=== PATIENT | male | born 1940 | race Caucasian/White ===

== ENCOUNTER → 2017-02-17 | Outpatient (CLI) | payer MEDICARE, OTHER | LOC: MW.CHNEURO 08:00 | PROVIDERS: ATTEND Psychiatry & Neurology Neuromuscular Medicine | DX: G62.9 Polyneuropathy, unspecified (principal); G20 Parkinson's disease | CPT/HCPCS: 99214 ==

== ENCOUNTER → 2017-02-24 | Outpatient (CLI) | payer MEDICARE, OTHER | END | disposition home or self-care (01) | LOC: MW.CHUR 11:24 | PROVIDERS: ATTEND Urology | DX: R39.15 Urgency of urination (principal) | CPT/HCPCS: 52000; 81001 ==

== ENCOUNTER 2017-12-04 14:21 | Emergency (ER) | payer MEDICARE, OTHER ==
[2017-12-04] MEDS ORDERED: Acetaminophen 325 MG Tab PO ONE (15:41)
--- NOTE | 2017-12-04 15:44 | EDM.PDOC ---
ED HPI GENERAL MEDICAL PROBLEM - General Chief Complaint: Upper Extremity Injury/Pain Stated Complaint: FALL INJURY Time Seen by Provider: 12/04/17 15:33 - History of Present Illness INITIAL COMMENTS - FREE TEXT/NARRATIVE: HISTORY AND PHYSICAL: History of present illness: The patient is a 77-year-old male with a history of Parkinson's and some gait ataxia due to the Parkinson's in past who fell this morning approximately 9:45 AM striking his right shoulder. Patient did not pass out or blackout initially and was helped up and had no complaints of any pain initially. As the morning progressed he started complaining of right shoulder and proximal humerus pain and he is here for evaluation of said pain. He did not complain of head neck or back pain and has no other other extremity complaints. Patient denies any chest pain shortness of breath abdominal pain nausea or vomiting and for my evaluation also has no stated complaints except anterior shoulder pain. Family bedside says that he has had some gait imbalance is due to the Parkinson's and has had falls before because of that. Patient denies any distal elbow forearm hand or wrist pain. The patient is able to specifically recall the events of the fall today. He says that he was in the bathroom and was trying to back out with his walker when he turned and lost his balance and fell and the caregiver at [place] was present for this. It was a witnessed fall. The patient did not hit his head or pass out. The family at bedside says that when he does try to move backwards he does lose his balance and this would not be unusual for him. Review of systems: As per history of present illness and below otherwise all systems reviewed and negative. Past medical history: As per history of present illness and as reviewed below otherwise noncontributory. Surgical history: As per history of present illness and as reviewed below otherwise noncontributory. Social history: No reported history of drug or alcohol abuse. Family history: As per history of present illness and as reviewed below otherwise noncontributory. Physical exam: Gen.: Well-developed well-nourished man who is nontoxic and cooperative on evaluation. Vital signs are noted by me HEENT: Atraumatic, normocephalic, there are no midline step-offs defects or tenderness of the cervical spine negative for conjunctival pallor or scleral icterus, mucous membranes moist, throat clear, neck supple, nontender, trachea midline. Lungs: Clear to auscultation, breath sounds equal bilaterally, chest nontender. Heart: S1S2, regular rate and rhythm no overt murmurs Abdomen: Soft, nondistended, nontender. NABS Pelvis: Stable nontender. Genitourinary: Deferred. Rectal: Deferred. Extremities: Atraumatic with full range of motion of all extremities with the exception of the anterior aspect of the shoulder where there is visible ill- defined pink erythema and some soft tissue swelling with a very superficial skin abrasion but no palpable bony deformities. The clavicle is intact and nontender and there is some mild tenderness at the proximal humerus on the right. Distally on the right upper extremity there is no elbow forearm wrist or hand discomfort defects or deformities and the patient has full range of motion and pulses are intact. The legs are, negative for cords or calf pain. Neurovascular unremarkable. Neuro: Awake, alert, oriented Motor and sensory unremarkable throughout. Exam nonfocal. Diagnostics: X-ray right shoulder and humerus I Have discussed with the patient and family at bedside further workup including blood work and EKG urinalysis and they feel comfortable with just evaluating the injury of the shoulder at this time. Therapeutics: Ice pack Tylenol Impression: Right shoulder/humerus contusion Definitive disposition and diagnosis as appropriate pending reevaluation and review of above. Right Shoulder Pain Score (Numeric/FACES): 9 - Related Data Allergies Allergy/AdvReac Type Severity Reaction Status Date / Time No Known Allergies Allergy Verified 12/04/17 15:38 Home Meds: Home Meds Aspirin [Althea Chewable Aspirin] 81 mg PO DAILY 04/24/14 [History] Calcium Citrate/Vitamin D3 [Citracal-Vit D 200 mg-250 Tab] 1 each PO DAILY 04/24 [History] Carbidopa/Levodopa [Carbidopa-Levodopa 25-100] 1 tab PO QID 04/24/14 [History] Pramipexole Di-HCl [Mirapex] 0.25 mg PO DAILY 04/24/14 [History] QUEtiapine [SEROquel] 12.5 mg PO BEDTIME 08/22/14 [History] Acetaminophen [Tylenol Extra Strength] 500 mg PO Q4H PRN 12/04/17 [History] Alum Hydrox/Mag Hydrox/Simeth [Mag-Al Plus] 30 ml PO DAILY PRN 12/04/17 [History ] Bisacodyl [Dulcolax] 10 mg RC Q24H PRN 12/04/17 [History] Carbamide Peroxide [Debrox] 3 drop EARBOTH BEDTIME PRN 12/04/17 [History] Carbidopa/Levodopa [Carbidopa-Levo ER 50-200] 1 tab PO BEDTIME 12/04/17 [History ] Docusate Sodium 100 mg PO BID 12/04/17 [History] Entacapone 200 mg PO 5XDAY 12/04/17 [History] Loperamide HCl [Imodium A-D] 2 - 4 mg PO TID PRN MDD 3 12/04/17 [History] Magnesium Hydroxide [Milk of Magnesia] 30 ml PO DAILY PRN 12/04/17 [History] Multivit-Min/FA/Lycopene/Lut [Certavite Sr with Lutein Tab] 1 each PO DAILY 11/20 [History] Oseltamivir [Tamiflu] 75 mg PO BID 12/04/17 [History] Oxybutynin 5 mg PO BID 12/04/17 [History] Polyethylene Glycol 3350 [MiraLAX] 17 gm PO BID PRN 12/04/17 [History] Ranitidine HCl [Ranitidine] 150 mg PO BID PRN 12/04/17 [History] Past Medical History - Past Health History Medical/Surgical History: Denies Medical/Surgical History Social & Family History - Tobacco Use Smoking Status *Q: Never Smoker Years of Tobacco use: 5 Used Tobacco, but Quit: Yes Month Tobacco Last Used: 50 years Second Hand Smoke Exposure: No - Alcohol Use Days Per Week of Alcohol Use: 0 - Recreational Drug Use Recreational Drug Use: No Review of Systems - Review of Systems Review Of Systems: ROS reveals no pertinent complaints other than HPI. ED EXAM, GENERAL - Physical Exam Exam: See Below (See dictation) Course - Vital Signs Last Recorded V/S: Last Vital Signs Temp 36.9 C 12/04/17 15:40 Pulse 81 12/04/17 15:40 Resp 20 12/04/17 15:40 BP 121/75 12/04/17 15:40 Pulse Ox 94 L 12/04/17 15:40 - Orders/Labs/Meds Orders: Active Orders 24 hr Category Date Time Status Humerus Rt [CR] Stat Exams 12/04/17 15:41 Taken Shoulder Comp Rt [CR] Stat Exams 12/04/17 15:41 Taken Meds: Medications Discontinued Medications Generic Name Dose Route Start Last Admin Trade Name Kel PRN Reason Stop Dose Admin Acetaminophen 650 mg 12/04/17 15:41 12/04/17 15:52 Tylenol PO 12/04/17 15:42 650 mg NOW ONE Administration Departure - Departure Time of Disposition: 17:19 Disposition: DC/Tfer to SNF 03 Condition: Good Clinical Impression: Shoulder contusion Qualifiers: Encounter type: initial encounter Laterality: right Qualified Code(s): S40.011A - Contusion of right shoulder, initial encounter - Discharge Information Referrals: PCP,None [Primary Care Provider] - Forms: ED Department Discharge Additional Instructions: The following information is given to patients seen in the emergency department who are being discharged to home. This information is to outline your options for follow-up care. We provide all patients seen in our emergency department with a follow-up referral. The need for follow-up, as well as the timing and circumstances, are variable depending upon the specifics of your emergency department visit. If you don't have a primary care physician on staff, we will provide you with a referral. We always advise you to contact your personal physician following an emergency department visit to inform them of the circumstance of the visit and for follow-up with them and/or the need for any referrals to a consulting specialist. The emergency department will also refer you to a specialist when appropriate. This referral assures that you have the opportunity for followup care with a specialist. All of these measure are taken in an effort to provide you with optimal care, which includes your followup. Under all circumstances we always encourage you to contact your private physician who remains a resource for coordinating your care. When calling for followup care, please make the office aware that this follow-up is from your recent emergency room visit. If for any reason you are refused follow-up, please contact the [facility] emergency department at and ask to speak to the emergency department charge nurse. [address] [place], [place] [id number] [facility] Specialty [facility]--Orthopedic clinic Professional Building [address] [place] [id number] Use ice to area for pain and [id number] medications as needed. Please call and follow-up with your provider at [facility] and the orthopedics clinic as needed for persistent pain. Return to ER as needed and as discussed - My Orders Last 24 Hours: My Active Orders 12/04/17 15:41 Humerus Rt [CR] Stat Shoulder Comp Rt [CR] Stat - Assessment/Plan Last 24 Hours: My Active Orders 12/04/17 15:41 Humerus Rt [CR] Stat Shoulder Comp Rt [CR] Stat
[2017-12-04 19:47] VITALS: BP 128/76
--- NOTE | 2017-12-05 15:38 | CR ---
EXAM DATE: 12/04/17 PATIENT'S AGE: 77 Patient: RANCHO CARBALLO Facility: [place], [place] Site . Site : 1940 Study: XRay Extremity Right Humerus [id number]/1/[id number] 4:51:49 PM Ordering Physician: Naheed Zuluaga Final Report: INDICATION: Pain/fall TECHNIQUE: Right humerus 2 views. COMPARISON: None. FINDINGS: Bones: Alignment is normal. No fractures or bone lesions. Joint spaces: Unremarkable. Soft tissues: Unremarkable. IMPRESSION: Unremarkable right humerus. Dictated by: Ruiz Gunn MD @ 12/04/2017 17:15:53 (Electronic Signature) Report Signed by Proxy. SULLY
--- NOTE | 2017-12-05 15:39 | CR ---
EXAM DATE: 12/04/17 PATIENT'S AGE: 77 Patient: RANCHO CARBALLO Facility: [place], [place] Site . Site : 1940 Study: XRay Shoulder Right [id number]/1/2018 4:53:23 PM Ordering Physician: Naheed Zuluaga Final Report: INDICATION: pain/fall TECHNIQUE: Right shoulder 2 views COMPARISON: None. FINDINGS: Bones: Alignment is normal. No fractures or bone lesions. Joint spaces: Unremarkable. Soft tissues: Unremarkable. IMPRESSION: Unremarkable right shoulder. Dictated by: Ruiz Gunn MD @ 12/04/2017 17:16:29 (Electronic Signature) Report Signed by Proxy. SULLY
== END 2017-12-04 17:41 ==
LOC: MW.ED 14:21
DX: S40.011A Contusion of right shoulder, initial encounter (principal); G20 Parkinson's disease; Z79.82 Long term (current) use of aspirin; Z79.899 Other long term (current) drug therapy; Z87.891 Personal history of nicotine dependence; W01.198A Fall on same level from slipping, tripping and stumbling with subsequent striking against other object, initial encounter
CPT/HCPCS: 73030; 73060; 99283; A9270; 99284

== ENCOUNTER 2018-01-07 21:03 | Emergency (ER) | payer MEDICARE, OTHER ==
[2018-01-07 21:21] VITALS: BP 135/90
[2018-01-07] MEDS ORDERED: Diphtheria/Tetanus Toxoids,Adult (Td) 0.5 ML Syringe IM ONE (21:28)
[2018-01-07] MEDS ORDERED: Lidocaine 1% with EPINEPHrine 1:100,000 10 ML MDV INJECT ONE (21:29)
[2018-01-07] MEDS ORDERED: Lidocaine 1% with EPINEPHrine 1:100,000 20 ML MDV ONE (21:34)
[2018-01-07] MEDS ORDERED: Lidocaine 1% with EPINEPHrine 1:100,000 20 ML MDV INJECT ONE (21:35)
[2018-01-07] MEDS ORDERED: Bacitracin Oint 1 GM U/D Packet TOP ONE (21:36)
--- NOTE | 2018-01-07 21:36 | EDM.PDOC ---
ED HPI GENERAL MEDICAL PROBLEM - General Chief Complaint: Laceration Stated Complaint: FALL Time Seen by Provider: 01/07/18 21:22 - History of Present Illness INITIAL COMMENTS - FREE TEXT/NARRATIVE: HISTORY AND PHYSICAL: History of present illness: The patient is a 77-year-old male with a history of Parkinson's with gait ataxia and frequent falls who presents via EMS from [facility] where he sustained a minor fall when he was trying to go backwards with his walker. I saw this patient on December 04 with a similar presentation where he was with his walker and tried to go backwards and had a fall injuring his shoulder. He tells me that every time he tries to go backwards he has a fall but sometimes he can avoid going backwards. He says that this is exactly what happened this evening. He did not pass out or blackout and has no neck or back pain no extremity complaints no hip pain no pelvis pain and has had no nausea or vomiting. Earlier today he was in his usual state of good health and had no vomiting diarrhea urinary issues abdominal pain upper respiratory symptoms chest pain or dizziness. Patient denies that he had any specific symptoms of dizziness or lightheadedness before the fall. He has no extremity issues such as weakness numbness or tingling and no pain. He is unsure of his last tetanus. When I saw this patient in December the family member at bedside only wanted focused care on his shoulder and did not want any metabolic testing. The 2 family members at bedside this evening do want some metabolic testing. Review of systems: As per history of present illness and below otherwise all systems reviewed and negative. Past medical history: As per history of present illness and as reviewed below otherwise noncontributory. Surgical history: As per history of present illness and as reviewed below otherwise noncontributory. Social history: No reported history of drug or alcohol abuse. Family history: As per history of present illness and as reviewed below otherwise noncontributory. Physical exam: Gen.: Well-developed well-nourished man who is nontoxic and moves easily in the bed and is interactive with me. Vital signs are noted by me HEENT: normocephalic, there are no palpable skull deformities but there is a vertical clean for centimeter laceration to the subcutaneous tissue on the upper occipital area without any soft tissue swelling, pupils reactive, negative for conjunctival pallor or scleral icterus, mucous membranes moist, throat clear, neck supple, nontender, trachea midline. There are no midline step -offs tenderness defects of the cervical spine Lungs: Clear to auscultation, breath sounds equal bilaterally, chest nontender. Heart: S1S2, regular, negative for clicks, rubs, or JVD. Abdomen: Soft, nondistended, nontender. Negative for masses or hepatosplenomegaly. Negative for costovertebral tenderness. Pelvis: Stable nontender. Lateral hip tenderness Genitourinary: Deferred. Rectal: Deferred. Extremities: Atraumatic, negative for cords or calf pain. Neurovascular unremarkable. Full range of motion of all extremities without defects or deficits and there is no tenderness with this exam. Neuro: Awake, alert, oriented. Cranial nerves II through XII unremarkable. Motor and sensory unremarkable throughout. Exam nonfocal. Back: There are no midline step-offs tenderness defects of the thoracic or lumbar spine and no posterior rib or posterior pelvis tenderness Diagnostics: CT scan of the head EKG CBC CMP UA Therapeutics: Wound care laceration repair Procedure note: After the wound was cleansed by nursing 1% lidocaine with epinephrine was infused and the wound was prepped and draped in sterile fashion. The wound was explored and no foreign bodies were appreciated. The skin edges were reapproximated using a total number of # 6 nayely. Bacitracin was applied and the patient tolerated the procedure well with no complications. Impression: Fall with history of Parkinson's/ataxia and frequent falls, scalp laceration Definitive disposition and diagnosis as appropriate pending reevaluation and review of above. occipital area Pain Score (Numeric/FACES): 2 - Related Data Allergies Allergy/AdvReac Type Severity Reaction Status Date / Time No Known Allergies Allergy Verified 01/07/18 21:16 Home Meds: Home Meds Aspirin [Althea Chewable Aspirin] 81 mg PO DAILY 04/24/14 [History] Calcium Citrate/Vitamin D3 [Citracal-Vit D 200 mg-250 Tab] 1 each PO DAILY 04/24 [History] Carbidopa/Levodopa [Carbidopa-Levodopa 25-100] 1 tab PO QID 04/24/14 [History] Pramipexole Di-HCl [Mirapex] 0.25 mg PO DAILY 04/24/14 [History] QUEtiapine [SEROquel] 12.5 mg PO BEDTIME 08/22/14 [History] Acetaminophen [Tylenol Extra Strength] 500 mg PO Q4H PRN 12/04/17 [History] Alum Hydrox/Mag Hydrox/Simeth [Mag-Al Plus] 30 ml PO DAILY PRN 12/04/17 [History ] Bisacodyl [Dulcolax] 10 mg RC Q24H PRN 12/04/17 [History] Carbamide Peroxide [Debrox] 3 drop EARBOTH BEDTIME PRN 12/04/17 [History] Carbidopa/Levodopa [Carbidopa-Levo ER 50-200] 1 tab PO BEDTIME 12/04/17 [History ] Docusate Sodium 100 mg PO BID 12/04/17 [History] Entacapone 200 mg PO 5XDAY 12/04/17 [History] Loperamide HCl [Imodium A-D] 2 - 4 mg PO TID PRN MDD 3 12/04/17 [History] Magnesium Hydroxide [Milk of Magnesia] 30 ml PO DAILY PRN 12/04/17 [History] Multivit-Min/FA/Lycopene/Lut [Certavite Sr with Lutein Tab] 1 each PO DAILY 11/20 [History] Oseltamivir [Tamiflu] 75 mg PO BID 12/04/17 [History] Oxybutynin 5 mg PO BID 12/04/17 [History] Polyethylene Glycol 3350 [MiraLAX] 17 gm PO BID PRN 12/04/17 [History] Ranitidine HCl [Ranitidine] 150 mg PO BID PRN 12/04/17 [History] Past Medical History - Past Health History Medical/Surgical History: Denies Medical/Surgical History HEENT History: Reports: Hard of Hearing, Impaired Vision Cardiovascular History: Reports: Afib, Hypertension Respiratory History: Reports: None Gastrointestinal History: Reports: Other (See Below) Other Gastrointestinal History: Constipation Genitourinary History: Reports: Other (See Below) Other Genitourinary History: Urinary Urgency Musculoskeletal History: Reports: Gout, Other (See Below) Other Musculoskeletal History: muscle weakness. lack of coordination Neurological History: Reports: Parkinson's Psychiatric History: Reports: Depression Endocrine/Metabolic History: Reports: None Hematologic History: Reports: Other (See Below) Other Hematologic History: Thrombocytopenia Immunologic History: Reports: None Oncologic (Cancer) History: Reports: None Dermatologic History: Reports: None Social & Family History - Family History Family Medical History: Noncontributory - Tobacco Use Smoking Status *Q: Former Smoker Years of Tobacco use: 5 Used Tobacco, but Quit: No Month Tobacco Last Used: 50 years Second Hand Smoke Exposure: No - Caffeine Use Caffeine Use: Reports: None - Alcohol Use Days Per Week of Alcohol Use: 0 - Recreational Drug Use Recreational Drug Use: No ED ROS GENERAL - Review of Systems Review Of Systems: ROS reveals no pertinent complaints other than HPI. ED EXAM, SKIN/RASH Exam: See Below (See dictation) Course - Vital Signs Last Recorded V/S: Last Vital Signs Temp 36.8 C 01/07/18 21:10 Pulse 72 01/07/18 21:10 Resp 18 01/07/18 21:10 BP 135/90 01/07/18 21:10 Pulse Ox 94 L 01/07/18 21:10 - Orders/Labs/Meds Orders: Active Orders 24 hr Category Date Time Status Communication Order [RC] STAT Care 01/07/18 21:28 Active EKG Documentation Completion [RC] STAT Care 01/07/18 21:27 Active Vaccines to be Administered [RC] PER UNIT ROUTINE Care 01/07/18 21:28 Active Head wo Cont [CT] Stat Exams 01/07/18 21:28 Taken Labs: Laboratory Tests 01/07/18 01/07/18 01/07/18 Range/Units 21:38 21:38 22:20 WBC 7.67 (4.0-11.0) K/uL RBC 4.65 (4.50-5.90) M/uL Hgb 14.2 (13.0-17.0) g/dL Hct 42.6 (38.0-50.0) % MCV 91.6 (80.0-98.0) fL MCH 30.5 (27.0-32.0) pg MCHC 33.3 (31.0-37.0) g/dL RDW Std Deviation 49.7 (28.0-62.0) fl RDW Coeff of [place] 15 (11.0-15.0) % Plt Count 145 L (150-400) K/uL MPV 11.40 (7.40-12.00) fL Neut % (Auto) 73.6 (48.0-80.0) % Lymph % (Auto) 13.6 L (16.0-40.0) % [place] % (Auto) 9.9 (0.0-15.0) % Eos % (Auto) 2.5 (0.0-7.0) % Baso % (Auto) 0.4 (0.0-1.5) % Neut # (Auto) 5.7 (1.4-5.7) K/uL Lymph # (Auto) 1.0 (0.6-2.4) K/uL [place] # (Auto) 0.8 (0.0-0.8) K/uL Eos # (Auto) 0.2 (0.0-0.7) K/uL Baso # (Auto) 0.0 (0.0-0.1) K/uL Nucleated RBC % 0.0 /100WBC Nucleated RBCs # 0 K/uL Sodium 140 (136-148) mmol/L Potassium 4.6 (3.5-5.1) mmol/L Chloride 106 (98-107) mmol/L Carbon Dioxide 29.1 (21.0-32.0) mmol/L BUN 22 H (7.0-18.0) mg/dL Creatinine 1.0 (0.8-1.3) mg/dL Est Cr Clr Drug Dosing 57.84 mL/min Estimated GFR (MDRD) > 60.0 ml/min Glucose 90 (74-106) mg/dL Calcium 8.5 (8.5-10.1) mg/dL Total Bilirubin 0.6 (0.2-1.0) mg/dL AST 21 (15-37) IU/L ALT 17 (14-63) IU/L Alkaline Phosphatase 64 (46-116) U/L Total Protein 5.7 L (6.4-8.2) g/dL Albumin 3.0 L (3.4-5.0) g/dL Globulin 2.7 (2.0-3.5) g/dL Albumin/Globulin Ratio 1.1 L (1.3-2.8) Urine Color YELLOW Urine Appearance CLEAR Urine pH 6.0 (5.0-8.0) Ur Specific [place] <= 1.005 (1.001-1.035) Urine Protein NEGATIVE (NEGATIVE) mg/dL Urine Glucose (UA) NEGATIVE (NEGATIVE) mg/dL Urine Ketones NEGATIVE (NEGATIVE) mg/dL Urine Occult Blood NEGATIVE (NEGATIVE) Urine Nitrite NEGATIVE (NEGATIVE) Urine Bilirubin NEGATIVE (NEGATIVE) Urine Urobilinogen 0.2 (<2.0) EU/dL Ur Leukocyte Esterase NEGATIVE (NEGATIVE) Urine RBC 0-2 (0-2/HPF) Urine WBC 0-1 (0-5/HPF) Ur Epithelial Cells RARE (NONE-FEW) Urine Bacteria FEW (NEGATIVE) Meds: Medications Discontinued Medications Generic Name Dose Route Start Last Admin Trade Name Kel PRN Reason Stop Dose Admin Bacitracin 1 dose 01/07/18 21:36 01/07/18 23:05 Bacitracin Oint 1 Gm TOP 01/07/18 21:37 1 dose ONETIME ONE Administration Lidocaine/Epinephrine 10 ml 01/07/18 21:29 01/07/18 22:46 Xylocaine 1% With Epinephrine 1:100,000 INJECT 01/07/18 21:30 Not Given ONETIME ONE Lidocaine/Epinephrine 20 ml 01/07/18 21:35 01/07/18 23:06 Xylocaine 1% With Epinephrine 1:100,000 INJECT 01/07/18 21:36 20 ml ONETIME ONE Administration Lidocaine/Epinephrine Confirm 01/07/18 21:34 01/07/18 22:46 Xylocaine 1% With Epinephrine 1:100,000 Administered 01/07/18 21:35 Not Given Dose 20 ml .ROUTE .STK-MED ONE Tetanus/Diphtheria Toxoids 0.5 ml 01/07/18 21:28 01/07/18 22:44 Tenivac IM 01/07/18 21:29 0.5 ml .ONCE ONE Administration Departure - Departure Time of Disposition: 23:20 Disposition: DC/Tfer to SNF 03 Condition: Good Clinical Impression: Falls frequently Scalp laceration Qualifiers: Encounter type: initial encounter Qualified Code(s): S01.01XA - Laceration without foreign body of scalp, initial encounter Closed head injury Qualifiers: Encounter type: initial encounter Qualified Code(s): S09.90XA - Unspecified injury of head, initial encounter - Discharge Information Referrals: PCP,None [Primary Care Provider] - Forms: ED Department Discharge Additional Instructions: The following information is given to patients seen in the emergency department who are being discharged to home. This information is to outline your options for follow-up care. We provide all patients seen in our emergency department with a follow-up referral. The need for follow-up, as well as the timing and circumstances, are variable depending upon the specifics of your emergency department visit. If you don't have a primary care physician on staff, we will provide you with a referral. We always advise you to contact your personal physician following an emergency department visit to inform them of the circumstance of the visit and for follow-up with them and/or the need for any referrals to a consulting specialist. The emergency department will also refer you to a specialist when appropriate. This referral assures that you have the opportunity for followup care with a specialist. All of these measure are taken in an effort to provide you with optimal care, which includes your followup. Under all circumstances we always encourage you to contact your private physician who remains a resource for coordinating your care. When calling for followup care, please make the office aware that this follow-up is from your recent emergency room visit. If for any reason you are refused follow-up, please contact the [facility] emergency department at and ask to speak to the emergency department charge nurse. [address] [place] [address] Keep area clean and dry for the next 24 hours and then cleanse with mild soap and water pat dry and apply bacitracin. [place] should be removed in 10 days. Please observe for any signs of head injury although the CT scan was within normal limits. Return to ER as needed and as discussed. - My Orders Last 24 Hours: My Active Orders 01/07/18 21:27 EKG Documentation Completion [RC] STAT 01/07/18 21:28 Communication Order [RC] STAT Vaccines to be Administered [RC] PER UNIT ROUTINE Head wo Cont [CT] Stat - Assessment/Plan Last 24 Hours: My Active Orders 01/07/18 21:27 EKG Documentation Completion [RC] STAT 01/07/18 21:28 Communication Order [RC] STAT Vaccines to be Administered [RC] PER UNIT ROUTINE Head wo Cont [CT] Stat
[2018-01-07 22:02] LABS: CHLORIDE,CL 106 mmol/L (98-107); SODIUM,NA 140 mmol/L (136-148)
--- NOTE | 2018-01-08 10:15 | CT ---
EXAM DATE: 01/07/18 PATIENT'S AGE: 77 Patient: RANCHO CARBALLO Facility: [place], [place] Site . Site : 1940 Study: CT Head [id number]/7/2018 10:05:46 PM Ordering Physician: Naheed Zuluaga Final Report: INDICATION: Fall, posterior laceration TECHNIQUE: CT head without contrast. COMPARISON: 04/23/2014 FINDINGS: CSF spaces: Within normal limits for age. Brain parenchyma: The irvin-white differentiation is normal. No sign of mass, hemorrhage, or midline shift. Skull base and calvarium: The visualized paranasal sinuses and mastoid air cells demonstrate no acute or significant findings. The visualized orbits are grossly unremarkable. No skull fractures. Hematoma and laceration high left parietal occipital scalp. IMPRESSION: Hematoma and laceration and left parieto-occipital scalp. No associated fractures or evidence of acute intracranial trauma. Dictated by Ruiz Gunn MD @ 01/07/2018 10:13:53 PM Dictated by: Ruiz Gunn MD @ 01/07/2018 22:14:00 (Electronic Signature) Report Signed by Proxy. [facility]William
== END 2018-01-07 22:50 ==
LOC: MW.ED 21:03
DX: S01.01XA Laceration without foreign body of scalp, initial encounter (principal); S09.90XA Unspecified injury of head, initial encounter; I10 Essential (primary) hypertension; Z79.82 Long term (current) use of aspirin; Z79.899 Other long term (current) drug therapy; Z87.891 Personal history of nicotine dependence; Z86.69 Personal history of other diseases of the nervous system and sense organs; W19.XXXA Unspecified fall, initial encounter
CPT/HCPCS: 36415; 70450; 70450-26; 80053; 81001; 85025; 90471; 90714; 93005; 99284-25

== ENCOUNTER 2018-06-19 17:46 | Emergency (ER) | payer MEDICARE, OTHER ==
[2018-06-19] MEDS ORDERED: Albuterol/Ipratropium 3.0-0.5 MG/3 ML Neb Soln NEB ONE (17:56)
[2018-06-19] MEDS ORDERED: methylPREDNISolone Sodium Succinate 125 MG/2 ML SDV IVPUSH ONE (17:56)
--- NOTE | 2018-06-19 17:57 | EDM.PDOC ---
<Chao Inman - Last Filed: 06/19/18 18:52> ED HPI GENERAL MEDICAL PROBLEM - General Chief Complaint: Respiratory Problem Stated Complaint: PT WEEZING Time Seen by Provider: 06/19/18 17:57 Source of Information: Reports: Patient - History of Present Illness INITIAL COMMENTS - FREE TEXT/NARRATIVE: HISTORY AND PHYSICAL: History of present illness: []Patient presents from the detention in no distress Apparently he had a fall at some point today, I do not know the details of this. A nurse head reported to have noted wheezing post fall, patient does not appear to be short of breath he denies shortness of breath but does complain of some right-sided rib pain and persistent cough for a week no fever nausea vomiting chills sweats no chest pain headache dizziness or palpitation no bowel or urine symptoms Review of systems: As per history of present illness and below otherwise all systems reviewed and negative. Past medical history: As per history of present illness and as reviewed below otherwise noncontributory. Surgical history: As per history of present illness and as reviewed below otherwise noncontributory. Social history: No reported history of drug or alcohol abuse. Family history: As per history of present illness and as reviewed below otherwise noncontributory. Physical exam: HEENT: Atraumatic, normocephalic, pupils reactive, negative for conjunctival pallor or scleral icterus, mucous membranes moist, throat clear, neck supple, nontender, trachea midline. Lungs: Clear to auscultation, breath sounds equal bilaterally, chest nontender. Heart: S1S2, regular, negative for clicks, rubs, or JVD. Abdomen: Soft, nondistended, nontender. Negative for masses or hepatosplenomegaly. Negative for costovertebral tenderness. Pelvis: Stable nontender. Genitourinary: Deferred. Rectal: Deferred. Extremities: Atraumatic, negative for cords or calf pain. Neurovascular unremarkable. Neuro: Awake, alert, oriented. Cranial nerves II through XII unremarkable. Cerebellum unremarkable. Motor and sensory unremarkable throughout. Exam nonfocal. Diagnostics: [CBC CMP troponin INR UA EKG Chest 1 view pelvis 1 view Right rib series Head CT-No contrast Therapeutics: DuoNeb Solu-Medrol ] Impression Fall Cough right-sided rib pain ] Chronic history baseline Definitive disposition and diagnosis as appropriate pending reevaluation and review of above. - Related Data Allergies Allergy/AdvReac Type Severity Reaction Status Date / Time No Known Allergies Allergy Verified 06/19/18 17:59 Home Meds: Home Meds Aspirin [Althea Chewable Aspirin] 81 mg PO DAILY 04/24/14 [History] Calcium Citrate/Vitamin D3 [Citracal-Vit D 200 mg-250 Tab] 1 each PO DAILY 04/24 [History] Carbidopa/Levodopa [Carbidopa-Levodopa 25-100] 1 tab PO QID 04/24/14 [History] Pramipexole Di-HCl [Mirapex] 0.25 mg PO DAILY 04/24/14 [History] QUEtiapine [SEROquel] 12.5 mg PO BEDTIME 08/22/14 [History] Acetaminophen [Tylenol Extra Strength] 500 mg PO Q4H PRN 12/04/17 [History] Alum Hydrox/Mag Hydrox/Simeth [Mag-Al Plus] 30 ml PO DAILY PRN 12/04/17 [History ] Bisacodyl [Dulcolax] 10 mg RC Q24H PRN 12/04/17 [History] Carbamide Peroxide [Debrox] 3 drop EARBOTH BEDTIME PRN 12/04/17 [History] Carbidopa/Levodopa [Carbidopa-Levo ER 50-200] 1 tab PO BEDTIME 12/04/17 [History ] Docusate Sodium 100 mg PO BID 12/04/17 [History] Entacapone 200 mg PO 5XDAY 12/04/17 [History] Loperamide HCl [Imodium A-D] 2 - 4 mg PO TID PRN MDD 3 12/04/17 [History] Magnesium Hydroxide [Milk of Magnesia] 30 ml PO DAILY PRN 12/04/17 [History] Multivit-Min/FA/Lycopene/Lut [Certavite Sr with Lutein Tab] 1 each PO DAILY 11/20 [History] Oseltamivir [Tamiflu] 75 mg PO BID 12/04/17 [History] Oxybutynin 5 mg PO BID 12/04/17 [History] Polyethylene Glycol 3350 [MiraLAX] 17 gm PO BID PRN 12/04/17 [History] Ranitidine HCl [Ranitidine] 150 mg PO BID PRN 12/04/17 [History] Past Medical History - Past Health History Medical/Surgical History: Denies Medical/Surgical History HEENT History: Reports: Hard of Hearing, Impaired Vision Cardiovascular History: Reports: Afib, Hypertension Respiratory History: Reports: None Gastrointestinal History: Reports: Other (See Below) Other Gastrointestinal History: Constipation Genitourinary History: Reports: Other (See Below) Other Genitourinary History: Urinary Urgency Musculoskeletal History: Reports: Gout, Other (See Below) Other Musculoskeletal History: muscle weakness. lack of coordination Neurological History: Reports: Parkinson's Psychiatric History: Reports: Depression Endocrine/Metabolic History: Reports: None Hematologic History: Reports: Other (See Below) Other Hematologic History: Thrombocytopenia Immunologic History: Reports: None Oncologic (Cancer) History: Reports: None Dermatologic History: Reports: None Social & Family History - Family History Family Medical History: Noncontributory - Caffeine Use Caffeine Use: Reports: None Course - Vital Signs Last Recorded V/S: Last Vital Signs Temp 36.2 C 06/19/18 17:56 Pulse 83 06/19/18 17:56 Resp 18 06/19/18 17:56 BP 120/70 06/19/18 17:56 Pulse Ox 95 06/19/18 17:56 - Orders/Labs/Meds Orders: Active Orders 24 hr Category Date Time Status EKG Documentation Completion [RC] STAT Care 06/19/18 17:56 Active RT Aerosol Therapy [RC] ASDIRECTED Care 06/19/18 17:56 Active Head wo Cont [CT] Stat Exams 06/19/18 18:48 Taken Pelvis 1V or 2V [CR] Stat Exams 06/19/18 18:25 Taken Ribs 2V w Chest Rt [CR] Stat Exams 06/19/18 18:28 Taken UA W/MICROSCOPIC [URIN] Stat Lab 06/19/18 18:08 Ordered Sodium Chloride 0.9% [Normal Saline] 1,000 ml Med 06/19/18 18:00 Active IV STAT Medication Orders Sodium Chloride (Normal Saline) 1,000 mls @ 125 mls/hr IV STAT KAROLINE Last Admin: 06/19/18 18:32 Dose: 125 mls/hr Labs: Laboratory Tests 06/19/18 06/19/18 06/19/18 Range/Units 18:08 18:16 18:16 WBC 10.82 (4.0-11.0) K/uL RBC 4.96 (4.50-5.90) M/uL Hgb 15.0 (13.0-17.0) g/dL Hct 44.3 (38.0-50.0) % MCV 89.3 (80.0-98.0) fL MCH 30.2 (27.0-32.0) pg MCHC 33.9 (31.0-37.0) g/dL RDW Std Deviation 48.2 (28.0-62.0) fl RDW Coeff of [place] 15 (11.0-15.0) % Plt Count 140 L (150-400) K/uL MPV 10.40 (7.40-12.00) fL Neut % (Auto) 81.8 H (48.0-80.0) % Lymph % (Auto) 6.3 L (16.0-40.0) % Green % (Auto) 8.8 (0.0-15.0) % Eos % (Auto) 2.9 (0.0-7.0) % Baso % (Auto) 0.2 (0.0-1.5) % Neut # (Auto) 8.9 H (1.4-5.7) K/uL Lymph # (Auto) 0.7 (0.6-2.4) K/uL Green # (Auto) 1.0 H (0.0-0.8) K/uL Eos # (Auto) 0.3 (0.0-0.7) K/uL Baso # (Auto) 0.0 (0.0-0.1) K/uL Nucleated RBC % 0.0 /100WBC Nucleated RBCs # 0 K/uL INR Sodium 137 (136-148) mmol/L Potassium 4.2 (3.5-5.1) mmol/L Chloride 101 (98-107) mmol/L Carbon Dioxide 28.3 (21.0-32.0) mmol/L BUN 21 H (7.0-18.0) mg/dL Creatinine 1.1 (0.8-1.3) mg/dL Est Cr Clr Drug Dosing TNP Estimated GFR (MDRD) > 60.0 ml/min Glucose 123 H (74-106) mg/dL Calcium 8.8 (8.5-10.1) mg/dL Total Bilirubin 0.6 (0.2-1.0) mg/dL AST 17 (15-37) IU/L ALT 9 L (14-63) IU/L Alkaline Phosphatase 86 (46-116) U/L Troponin I < 0.050 (0.000-0.056) ng/mL Total Protein 6.4 (6.4-8.2) g/dL Albumin 3.2 L (3.4-5.0) g/dL Globulin 3.2 (2.0-3.5) g/dL Albumin/Globulin Ratio 1.0 L (1.3-2.8) Urine Color YELLOW Urine Appearance CLEAR Urine pH 6.0 (5.0-8.0) Ur Specific [place] 1.020 (1.001-1.035) Urine Protein NEGATIVE (NEGATIVE) mg/dL Urine Glucose (UA) NEGATIVE (NEGATIVE) mg/dL Urine Ketones NEGATIVE (NEGATIVE) mg/dL Urine Occult Blood NEGATIVE (NEGATIVE) Urine Nitrite NEGATIVE (NEGATIVE) Urine Bilirubin NEGATIVE (NEGATIVE) Urine Urobilinogen 0.2 (<2.0) EU/dL Ur Leukocyte Esterase NEGATIVE (NEGATIVE) Urine RBC 0-2 (0-2/HPF) Urine WBC 0-1 (0-5/HPF) Ur Epithelial Cells RARE (NONE-FEW) Urine Bacteria FEW (NEGATIVE) 06/19/18 Range/Units 18:16 WBC (4.0-11.0) K/uL RBC (4.50-5.90) M/uL Hgb (13.0-17.0) g/dL Hct (38.0-50.0) % MCV (80.0-98.0) fL MCH (27.0-32.0) pg MCHC (31.0-37.0) g/dL RDW Std Deviation (28.0-62.0) fl RDW Coeff of [place] (11.0-15.0) % Plt Count (150-400) K/uL MPV (7.40-12.00) fL Neut % (Auto) (48.0-80.0) % Lymph % (Auto) (16.0-40.0) % Green % (Auto) (0.0-15.0) % Eos % (Auto) (0.0-7.0) % Baso % (Auto) (0.0-1.5) % Neut # (Auto) (1.4-5.7) K/uL Lymph # (Auto) (0.6-2.4) K/uL Green # (Auto) (0.0-0.8) K/uL Eos # (Auto) (0.0-0.7) K/uL Baso # (Auto) (0.0-0.1) K/uL Nucleated RBC % /100WBC Nucleated RBCs # K/uL INR 1.02 Sodium (136-148) mmol/L Potassium (3.5-5.1) mmol/L Chloride (98-107) mmol/L Carbon Dioxide (21.0-32.0) mmol/L BUN (7.0-18.0) mg/dL Creatinine (0.8-1.3) mg/dL Est Cr Clr Drug Dosing Estimated GFR (MDRD) ml/min Glucose (74-106) mg/dL Calcium (8.5-10.1) mg/dL Total Bilirubin (0.2-1.0) mg/dL AST (15-37) IU/L ALT (14-63) IU/L Alkaline Phosphatase (46-116) U/L Troponin I (0.000-0.056) ng/mL Total Protein (6.4-8.2) g/dL Albumin (3.4-5.0) g/dL Globulin (2.0-3.5) g/dL Albumin/Globulin Ratio (1.3-2.8) Urine Color Urine Appearance Urine pH (5.0-8.0) Ur Specific [place] (1.001-1.035) Urine Protein (NEGATIVE) mg/dL Urine Glucose (UA) (NEGATIVE) mg/dL Urine Ketones (NEGATIVE) mg/dL Urine Occult Blood (NEGATIVE) Urine Nitrite (NEGATIVE) Urine Bilirubin (NEGATIVE) Urine Urobilinogen (<2.0) EU/dL Ur Leukocyte Esterase (NEGATIVE) Urine RBC (0-2/HPF) Urine WBC (0-5/HPF) Ur Epithelial Cells (NONE-FEW) Urine Bacteria (NEGATIVE) Meds: Medications Generic Name Dose Route Start Last Admin Trade Name Freq PRN Reason Stop Dose Admin Sodium Chloride 1,000 mls @ 125 mls/hr 06/19/18 18:00 06/19/18 18:32 Normal Saline IV 125 mls/hr STAT KAROLINE Administration Discontinued Medications Generic Name Dose Route Start Last Admin Trade Name Kel PRN Reason Stop Dose Admin Albuterol/Ipratropium 3 ml 06/19/18 17:56 06/19/18 18:42 Duoneb 3.0-0.5 Mg/3 Ml NEB 06/19/18 17:57 3 ml ONETIME ONE Administration Methylprednisolone Sodium Succinate 125 mg 06/19/18 17:56 06/19/18 18:35 Solu-Medrol IVPUSH 06/19/18 17:57 125 mg ONETIME ONE Administration Departure - Departure Disposition: Home, Self-Care 01 Clinical Impression: Pneumonitis, History of fall, Rib injury - Discharge Information Referrals: PCP,None [Primary Care Provider] - Forms: ED Department Discharge Additional Instructions: The following information is given to patients seen in the emergency department who are being discharged to home. This information is to outline your options for follow-up care. We provide all patients seen in our emergency department with a follow-up referral. The need for follow-up, as well as the timing and circumstances, are variable depending upon the specifics of your emergency department visit. If you don't have a primary care physician on staff, we will provide you with a referral. We always advise you to contact your personal physician following an emergency department visit to inform them of the circumstance of the visit and for follow-up with them and/or the need for any referrals to a consulting specialist. The emergency department will also refer you to a specialist when appropriate. This referral assures that you have the opportunity for followup care with a specialist. All of these measure are taken in an effort to provide you with optimal care, which includes your followup. Under all circumstances we always encourage you to contact your private physician who remains a resource for coordinating your care. When calling for followup care, please make the office aware that this follow-up is from your recent emergency room visit. If for any reason you are refused follow-up, please contact the [facility] emergency department at and asked to speak to the emergency department charge nurse. Levaquin as prescribed Tylenol as directed follow-up with primary medical doctor as needed as discussed and return as needed as discussed <Wayne Kaufman - Last Filed: 06/19/18 21:39> ED HPI GENERAL MEDICAL PROBLEM - History of Present Illness INITIAL COMMENTS - FREE TEXT/NARRATIVE: Patient's emergency department course has been unremarkable CT of his brain was negative for any acute findings as well as his chest ribs and extremity x-ray patient is without complaints he will be discharged with diagnosis of observation status post fall and because of his productive cough be treated like for pneumonitis this was discussed with patient and family be discharged on Levaquin to be taken as prescribed follow up with his primary medical doctor as needed as discussed and return as needed as discussed ED ROS GENERAL - Review of Systems Review Of Systems: ROS reveals no pertinent complaints other than HPI. ED EXAM, GENERAL - Physical Exam Exam: See Below (The dictation) Departure - Departure Time of Disposition: 21:38 Condition: Good - Discharge Information *PRESCRIPTION DRUG MONITORING PROGRAM REVIEWED*: Not Applicable *COPY OF PRESCRIPTION DRUG MONITORING REPORT IN PATIENT TORY: Not Applicable
[2018-06-19] MEDS ORDERED: Sodium Chloride 0.9% 1,000 ML IV SCH (18:00)
[2018-06-19 18:53] LABS: CHLORIDE,CL 101 mmol/L (98-107); SODIUM,NA 137 mmol/L (136-148)
[2018-06-19 22:05] VITALS: BP 118/72
--- NOTE | 2018-06-22 10:17 | CT ---
EXAM DATE: 06/19/18 PATIENT'S AGE: 78 Patient: RANCHO CARBALLO Facility: [place], [place] Site . Site : 1940 Study: CT Head [id number]/17/2018 7:17:07 PM Ordering Physician: Azar Guidry Final Report: INDICATION: Fall, head injury TECHNIQUE: CT Head without contrast. COMPARISON: None. FINDINGS: CSF spaces: Within normal limits for age. Brain parenchyma: The irvin-white differentiation is normal. No sign of mass, hemorrhage, or midline shift. Skull base and calvarium: The visualized paranasal sinuses and mastoid air cells are clear. The visualized orbits are grossly unremarkable. No skull fractures. IMPRESSION: Unremarkable noncontrast head CT. Please note that all CT scans at this facility use dose modulation, iterative reconstruction, and/or weight-based dosing when appropriate to reduce radiation dose to as low as reasonably achievable. Dictated by: Micah Ordaz MD @ 06/19/2018 19:23:56 (Electronic Signature) Report Signed by Proxy. [facility]
--- NOTE | 2018-06-22 10:18 | CR ---
EXAM DATE: 06/19/18 PATIENT'S AGE: 78 Patient: RANCHO CARBALLO Facility: [place], [place] Site . Site : 1940 Study: XRay Chest [id number]/17/2018 7:38:48 PM Ordering Physician: Azar Guidry Final Report: INDICATION: Fall with pain TECHNIQUE: Chest and right ribs 5 views. COMPARISON: 07/06/2013 FINDINGS: Cardiovascular and mediastinum: Heart size and vasculature are normal in caliber and appearance. Mediastinum is within normal limits. Lungs and pleural spaces: Lungs are clear. No sign of infiltrate or mass. No sign of pleural effusion. No pneumothorax. Bones and soft tissues: Detailed oblique images of the right ribs demonstrate no fractures or bone lesions. IMPRESSION: Unremarkable chest and right ribs. Dictated by Micah Ordaz MD @ Jun 19 2018 7:57PM (Electronic Signature) Report Signed by Proxy. [facility]
--- NOTE | 2018-06-22 10:19 | CR ---
EXAM DATE: 06/19/18 PATIENT'S AGE: 78 Patient: RANCHO CRABALLO Facility: [place], [place] Site . 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 Bone alignment is normal. No sign of acute fracture. Joint spaces: Mild left hip joint osteoarthritis. Degenerative spondylosis is in the lower lumbar spine. Soft tissues: Unremarkable. Impression: No sign of acute injury. Dictated by Micah Ordaz MD @ Jun 19 2018 7:57PM (Electronic Signature) Report Signed by Proxy. [facility]
== END 2018-06-19 22:07 | disposition home or self-care (01) ==
LOC: MW.ED 17:46
DX: S29.9XXA Unspecified injury of thorax, initial encounter (principal); J18.9 Pneumonia, unspecified organism; I10 Essential (primary) hypertension; I48.91 Unspecified atrial fibrillation; Z79.82 Long term (current) use of aspirin; Z79.899 Other long term (current) drug therapy; W19.XXXA Unspecified fall, initial encounter
CPT/HCPCS: 36415; 70450; 71101; 72170; 80053; 81001; 84484; 85025; 85610; 93005; 96361; 96374; 99284; J2930; J7040; 99283; J7620-GY

== ENCOUNTER 2019-03-19 10:30 | Emergency (ER) | payer MEDICARE, OTHER ==
[2019-03-19] MEDS ORDERED: Sodium Chloride 0.9% 2.5 ML Syringe FLUSH PRN (10:43)
[2019-03-19] MEDS ORDERED: Sodium Chloride 0.9% 10 ML Syringe FLUSH PRN (10:43)
[2019-03-19] MEDS ORDERED: Sodium Chloride 0.9% 250 ML IV SCH (10:45)
--- NOTE | 2019-03-19 10:48 | EDM.PDOC ---
ED HPI GENERAL MEDICAL PROBLEM - General Stated Complaint: SEIZURE Time Seen by Provider: 03/19/19 10:31 - History of Present Illness INITIAL COMMENTS - FREE TEXT/NARRATIVE: HISTORY AND PHYSICAL: History of present illness: Patient is 79-year-old white male with multiple medical problems including Parkinson's disease for which she's followed by neurology who [facility] after having had an episode in which he was shaking while on the toilet as was noted by nurses followed by a period of somnolence he is back to his baseline per daughter there's been no reported fever chills vomiting diarrhea or other complaints. Review of systems: As per history of present illness and below otherwise all systems reviewed and negative. Past medical history: As per history of present illness and as reviewed below otherwise noncontributory. Surgical history: As per history of present illness and as reviewed below otherwise noncontributory. Social history: No reported history of drug or alcohol abuse. Family history: As per history of present illness and as reviewed below otherwise noncontributory. Physical exam: HEENT: Atraumatic, normocephalic, pupils reactive, negative for conjunctival pallor or scleral icterus, mucous membranes moist, throat clear, neck supple, nontender, trachea midline. Lungs: Clear to auscultation, breath sounds equal bilaterally, chest nontender. Heart: S1S2, regular, negative for clicks, rubs, or JVD. Abdomen: Soft, nondistended, nontender. Negative for masses or hepatosplenomegaly. Negative for costovertebral tenderness. Pelvis: Stable nontender. Genitourinary: Deferred. Rectal: Deferred. Extremities: Atraumatic, negative for cords or calf pain. Neurovascular unremarkable. Neuro: Awake, alert, Follows commands and moves all extremities limited but grossly nonfocal exam baseline per family Diagnostics: CBC CMP troponin PT/INR chest x-ray EKG UA prolactin level CT brain blood culture 2 lactic acid Therapeutics: Saline 250 mL bolus Impression: #1 medical screening exam #2 history of Parkinson's disease #3 abberrant event rule out new onset seizure Definitive disposition and diagnosis as appropriate pending reevaluation and review of above. - Related Data Allergies Allergy/AdvReac Type Severity Reaction Status Date / Time No Known Allergies Allergy Verified 06/19/18 17:59 Home Meds: Home Meds Aspirin [Althea Chewable Aspirin] 81 mg PO DAILY 04/24/14 [History] Calcium Citrate/Vitamin D3 [Citracal-Vit D 200 mg-250 Tab] 1 each PO DAILY 04/24 [History] Carbidopa/Levodopa [Carbidopa-Levodopa 25-100] 1.5 tab PO QID 04/24/14 [History] Acetaminophen [Tylenol Extra Strength] 500 mg PO Q4H PRN 12/04/17 [History] Alum Hydrox/Mag Hydrox/Simeth [Mag-Al Plus] 30 ml PO DAILY PRN 12/04/17 [History ] Bisacodyl [Dulcolax] 10 mg RC Q24H PRN 12/04/17 [History] Carbamide Peroxide [Debrox] 3 drop EARBOTH BEDTIME PRN 12/04/17 [History] Carbidopa/Levodopa [Carbidopa-Levo ER 50-200] 1 tab PO BEDTIME 12/04/17 [History ] Docusate Sodium 100 mg PO BID 12/04/17 [History] Entacapone 200 mg PO 5XDAY 12/04/17 [History] Loperamide HCl [Imodium A-D] 2 - 4 mg PO TID PRN MDD 3 12/04/17 [History] Magnesium Hydroxide [Milk of Magnesia] 30 ml PO DAILY PRN 12/04/17 [History] Multivit-Min/FA/Lycopene/Lut [Certavite Sr with Lutein Tab] 1 each PO DAILY 11/20 [History] Oxybutynin 5 mg PO BID 12/04/17 [History] Polyethylene Glycol 3350 [MiraLAX] 17 gm PO BID PRN 12/04/17 [History] Ranitidine HCl [Ranitidine] 150 mg PO BID PRN 12/04/17 [History] ARIPiprazole [Abilify] 10 mg PO DAILY 03/19/19 [History] Allopurinol [Zyloprim] 100 mg PO DAILY 03/19/19 [History] Citalopram Hydrobromide [Celexa] 10 mg PO DAILY 03/19/19 [History] Na Phos,M-B/Na Phos,Di-Ba [Fleet Enema] 1 applic RC ASDIRECTED PRN 03/19/19 [ History] guaiFENesin [Mucinex] 600 mg PO Q12H PRN 03/19/19 [History] Past Medical History - Past Health History Medical/Surgical History: Denies Medical/Surgical History HEENT History: Reports: Hard of Hearing, Impaired Vision Cardiovascular History: Reports: Afib, Hypertension Respiratory History: Reports: None Gastrointestinal History: Reports: Other (See Below) Other Gastrointestinal History: Constipation Genitourinary History: Reports: Other (See Below) Other Genitourinary History: Urinary Urgency Musculoskeletal History: Reports: Gout, Other (See Below) Other Musculoskeletal History: muscle weakness. lack of coordination Neurological History: Reports: Parkinson's Psychiatric History: Reports: Depression Endocrine/Metabolic History: Reports: None Hematologic History: Reports: Other (See Below) Other Hematologic History: Thrombocytopenia Immunologic History: Reports: None Oncologic (Cancer) History: Reports: None Dermatologic History: Reports: None - Infectious Disease History Infectious Disease History: Reports: Chicken Pox, Measles, Mumps Social & Family History - Family History Family Medical History: Noncontributory - Caffeine Use Caffeine Use: Reports: None ED ROS GENERAL - Review of Systems Review Of Systems: ROS reveals no pertinent complaints other than HPI. ED EXAM, GENERAL - Physical Exam Exam: See Below (See dictation) Course - Vital Signs Last Recorded V/S: Last Vital Signs Temp 36.3 C 03/19/19 10:30 Pulse 87 03/19/19 10:30 Resp 21 H 03/19/19 10:30 BP 127/84 03/19/19 10:30 Pulse Ox 96 03/19/19 10:30 - Orders/Labs/Meds Orders: Active Orders 24 hr Category Date Time Status EKG Documentation Completion [RC] STAT Care 03/19/19 10:43 Active Urinary Catheter Assessment [RC] ASDIRECTED Care 03/19/19 11:45 Active Urinary Catheter Insertion [Insert Urinary Catheter] [ Care 03/19/19 11:44 Ordered OM.PC] Stat COMPREHENSIVE METABOLIC PN,CMP [CHEM] Stat Lab 03/19/19 10:57 Received CULTURE BLOOD [BC] Stat Lab 03/19/19 10:57 Received CULTURE BLOOD [BC] Stat Lab 03/19/19 11:28 Results PROLACTIN [CHEM] Stat Lab 03/19/19 10:57 Received TROPONIN I [CHEM] Stat Lab 03/19/19 10:57 Received Sodium Chloride 0.9% [Normal Saline] 250 ml Med 03/19/19 10:45 Active IV STAT Sodium Chloride 0.9% [Saline Flush] Med 03/19/19 10:43 Active 10 ml FLUSH ASDIRECTED PRN Sodium Chloride 0.9% [Saline Flush] Med 03/19/19 10:43 Active 2.5 ml FLUSH ASDIRECTED PRN Blood Culture x2 Reflex Set [OM.PC] Stat Oth 03/19/19 10:43 Ordered Saline Lock Insert [OM.PC] Stat Oth 03/19/19 10:43 Ordered Medication Orders Sodium Chloride (Normal Saline) 250 mls @ 999 mls/hr IV STAT KAROLINE Last Admin: 03/19/19 12:00 Dose: 999 mls/hr Sodium Chloride (Saline Flush) 10 ml FLUSH ASDIRECTED PRN PRN Reason: Keep Vein Open Sodium Chloride (Saline Flush) 2.5 ml FLUSH ASDIRECTED PRN PRN Reason: Keep Vein Open Labs: Laboratory Tests 03/19/19 03/19/19 03/19/19 Range/Units 10:57 10:57 10:57 WBC 7.78 (4.0-11.0) K/uL RBC 5.07 (4.50-5.90) M/uL Hgb 15.6 (13.0-17.0) g/dL Hct 46.2 (38.0-50.0) % MCV 91.1 (80.0-98.0) fL MCH 30.8 (27.0-32.0) pg MCHC 33.8 (31.0-37.0) g/dL RDW Std Deviation 48.2 (28.0-62.0) fl RDW Coeff of [place] 15 (11.0-15.0) % Plt Count 153 (150-400) K/uL MPV 10.90 (7.40-12.00) fL Neut % (Auto) 77.7 (48.0-80.0) % Lymph % (Auto) 10.9 L (16.0-40.0) % [place] % (Auto) 9.4 (0.0-15.0) % Eos % (Auto) 1.7 (0.0-7.0) % Baso % (Auto) 0.3 (0.0-1.5) % Neut # (Auto) 6.1 H (1.4-5.7) K/uL Lymph # (Auto) 0.9 (0.6-2.4) K/uL [place] # (Auto) 0.7 (0.0-0.8) K/uL Eos # (Auto) 0.1 (0.0-0.7) K/uL Baso # (Auto) 0.0 (0.0-0.1) K/uL Nucleated RBC % 0.0 /100WBC Nucleated RBCs # 0 K/uL INR 1.02 Lactate 1.1 (0.20-2.00) mmol/L Urine Color Urine Appearance Urine pH (5.0-8.0) Ur Specific [place] (1.001-1.035) Urine Protein (NEGATIVE) mg/dL Urine Glucose (UA) (NEGATIVE) mg/dL Urine Ketones (NEGATIVE) mg/dL Urine Occult Blood (NEGATIVE) Urine Nitrite (NEGATIVE) Urine Bilirubin (NEGATIVE) Urine Urobilinogen (<2.0) EU/dL Ur Leukocyte Esterase (NEGATIVE) 03/19/19 Range/Units 11:27 WBC (4.0-11.0) K/uL RBC (4.50-5.90) M/uL Hgb (13.0-17.0) g/dL Hct (38.0-50.0) % MCV (80.0-98.0) fL MCH (27.0-32.0) pg MCHC (31.0-37.0) g/dL RDW Std Deviation (28.0-62.0) fl RDW Coeff of [place] (11.0-15.0) % Plt Count (150-400) K/uL MPV (7.40-12.00) fL Neut % (Auto) (48.0-80.0) % Lymph % (Auto) (16.0-40.0) % [place] % (Auto) (0.0-15.0) % Eos % (Auto) (0.0-7.0) % Baso % (Auto) (0.0-1.5) % Neut # (Auto) (1.4-5.7) K/uL Lymph # (Auto) (0.6-2.4) K/uL [place] # (Auto) (0.0-0.8) K/uL Eos # (Auto) (0.0-0.7) K/uL Baso # (Auto) (0.0-0.1) K/uL Nucleated RBC % /100WBC Nucleated RBCs # K/uL INR Lactate (0.20-2.00) mmol/L Urine Color YELLOW Urine Appearance CLEAR Urine pH 6.5 (5.0-8.0) Ur Specific [place] 1.010 (1.001-1.035) Urine Protein NEGATIVE (NEGATIVE) mg/dL Urine Glucose (UA) NEGATIVE (NEGATIVE) mg/dL Urine Ketones NEGATIVE (NEGATIVE) mg/dL Urine Occult Blood NEGATIVE (NEGATIVE) Urine Nitrite NEGATIVE (NEGATIVE) Urine Bilirubin NEGATIVE (NEGATIVE) Urine Urobilinogen 0.2 (<2.0) EU/dL Ur Leukocyte Esterase NEGATIVE (NEGATIVE) Meds: Medications Generic Name Dose Route Start Last Admin Trade Name Freq PRN Reason Stop Dose Admin Sodium Chloride 250 mls @ 999 mls/hr 03/19/19 10:45 03/19/19 12:00 Normal Saline IV 999 mls/hr STAT KAROLINE Administration Sodium Chloride 10 ml 03/19/19 10:43 Saline Flush FLUSH ASDIRECTED PRN Keep Vein Open Sodium Chloride 2.5 ml 03/19/19 10:43 Saline Flush FLUSH ASDIRECTED PRN Keep Vein Open Departure - Departure Time of Disposition: 12:55 Disposition: Home, Self-Care 01 Condition: Good Clinical Impression: Encounter for medical screening examination, History of Parkinson's disease - Discharge Information Referrals: Андрей Lundy MD [Primary Care Provider] - Additional Instructions: The following information is given to patients seen in the emergency department who are being discharged to home. This information is to outline your options for follow-up care. We provide all patients seen in our emergency department with a follow-up referral. The need for follow-up, as well as the timing and circumstances, are variable depending upon the specifics of your emergency department visit. If you don't have a primary care physician on staff, we will provide you with a referral. We always advise you to contact your personal physician following an emergency department visit to inform them of the circumstance of the visit and for follow-up with them and/or the need for any referrals to a consulting specialist. The emergency department will also refer you to a specialist when appropriate. This referral assures that you have the opportunity for followup care with a specialist. All of these measure are taken in an effort to provide you with optimal care, which includes your followup. Under all circumstances we always encourage you to contact your private physician who remains a resource for coordinating your care. When calling for followup care, please make the office aware that this follow-up is from your recent emergency room visit. If for any reason you are refused follow-up, please contact the [facility] emergency department at and asked to speak to the emergency department charge nurse. Continue current medications follow private medical doctor and neurology as discussed return as needed as discussed - My Orders Last 24 Hours: My Active Orders 03/19/19 10:43 EKG Documentation Completion [RC] STAT Sodium Chloride 0.9% [Saline Flush] 10 ml FLUSH ASDIRECTED PRN Sodium Chloride 0.9% [Saline Flush] 2.5 ml FLUSH ASDIRECTED PRN Blood Culture x2 Reflex Set [OM.PC] Stat Saline Lock Insert [OM.PC] Stat 03/19/19 10:45 Sodium Chloride 0.9% [Normal Saline] 250 ml IV STAT 03/19/19 10:57 COMPREHENSIVE METABOLIC PN,CMP [CHEM] Stat CULTURE BLOOD [BC] Stat PROLACTIN [CHEM] Stat TROPONIN I [CHEM] Stat 03/19/19 11:28 CULTURE BLOOD [BC] Stat 03/19/19 11:44 Urinary Catheter Insertion [Insert Urinary Catheter] [OM.PC] Stat 03/19/19 11:45 Urinary Catheter Assessment [RC] ASDIRECTED - Assessment/Plan Last 24 Hours: My Active Orders 03/19/19 10:43 EKG Documentation Completion [RC] STAT Sodium Chloride 0.9% [Saline Flush] 10 ml FLUSH ASDIRECTED PRN Sodium Chloride 0.9% [Saline Flush] 2.5 ml FLUSH ASDIRECTED PRN Blood Culture x2 Reflex Set [OM.PC] Stat Saline Lock Insert [OM.PC] Stat 03/19/19 10:45 Sodium Chloride 0.9% [Normal Saline] 250 ml IV STAT 03/19/19 10:57 COMPREHENSIVE METABOLIC PN,CMP [CHEM] Stat CULTURE BLOOD [BC] Stat PROLACTIN [CHEM] Stat TROPONIN I [CHEM] Stat 03/19/19 11:28 CULTURE BLOOD [BC] Stat 03/19/19 11:44 Urinary Catheter Insertion [Insert Urinary Catheter] [OM.PC] Stat 03/19/19 11:45 Urinary Catheter Assessment [RC] ASDIRECTED
[2019-03-19 11:42] VITALS: BP 127/84
--- NOTE | 2019-03-19 12:25 | CT ---
EXAMINATION: Non contrast CT head. Coronal and sagittal reformats. HISTORY: Pain FINDINGS: No evidence of intra or extra axial hemorrhage, mass, midline shift, hydrocephalus or edema. Mild generalized atrophy. Periventricular and subcortical white matter hypodensities are noted. Small area of encephalomalacia within the right frontal lobe. No hypoattenuation changes in the major vascular territories to suggest acute infarct. No abnormal intracranial calcifications are detected. No evidence of substantial vascular calcifications. Paranasal sinuses and mastoid air cells are well aerated without substantial findings. Pituitary fossa appears unremarkable. Orbits and globes are symmetric. Calvarium is intact. No evidence of skull fracture. IMPRESSION: 1. No acute intracranial findings. 2. Mild generalized atrophy and small vessel ischemic changes. 3. Stable small area of encephalomalacia within the right frontal lobe.
--- NOTE | 2019-03-19 12:30 | CR ---
EXAMINATION: Portable chest radiograph. HISTORY: Shortness of breath. FINDINGS: The trachea is midline. The cardiomediastinal silhouette is within normal limits. No pulmonary infiltrates, effusions or pneumothorax. Osseous structures appear unremarkable. IMPRESSION: No acute cardiopulmonary process.
[2019-03-19 13:17] LABS: CHLORIDE,CL 106 mmol/L (98-107); SODIUM,NA 142 mmol/L (136-148)
== END 2019-03-19 13:40 | disposition home or self-care (01) ==
LOC: MW.ED 10:30
DX: R25.8 Other abnormal involuntary movements (principal); R40.0 Somnolence; G20 Parkinson's disease; F32.9 Major depressive disorder, single episode, unspecified; Z79.82 Long term (current) use of aspirin; Z79.899 Other long term (current) drug therapy
CPT/HCPCS: 36415; 51701; 70450; 71045; 80053; 81003; 83605; 84146; 84484; 85025; 85610; 87040; 93005; 99285; J7050

== ENCOUNTER 2019-03-29 16:33 | Emergency (ER) | payer MEDICARE, OTHER ==
--- NOTE | 2019-03-29 16:51 | EDM.PDOC ---
ED HPI GENERAL MEDICAL PROBLEM - General Stated Complaint: LETHARGIC, LOW PULSE Time Seen by Provider: 03/29/19 16:51 Source of Information: Reports: Patient - History of Present Illness INITIAL COMMENTS - FREE TEXT/NARRATIVE: HISTORY AND PHYSICAL: History of present illness: [Patient presents from [place] home with history of lethargy weakness and bradycardia episode apparently however he arrives alert interactive easily examined no distress does not appear lethargic his heart rate is been normal in the 70s No fever nausea vomiting diarrhea constipation chest pain shortness breath headache dizziness palpitation no bowel or urine symptoms] Review of systems: As per history of present illness and below otherwise all systems reviewed and negative. Past medical history: As per history of present illness and as reviewed below otherwise noncontributory. Surgical history: As per history of present illness and as reviewed below otherwise noncontributory. Social history: No reported history of drug or alcohol abuse. Family history: As per history of present illness and as reviewed below otherwise noncontributory. Physical exam: HEENT: Atraumatic, normocephalic, pupils reactive, negative for conjunctival pallor or scleral icterus, mucous membranes moist, throat clear, neck supple, nontender, trachea midline. Lungs: Clear to auscultation, breath sounds equal bilaterally, chest nontender. Heart: S1S2, regular, negative for clicks, rubs, or JVD. Abdomen: Soft, nondistended, nontender. Negative for masses or hepatosplenomegaly. Negative for costovertebral tenderness. Pelvis: Stable nontender. Genitourinary: Deferred. Rectal: Deferred. Extremities: Atraumatic, negative for cords or calf pain. Neurovascular unremarkable. Neuro: Awake, alert, oriented. Cranial nerves II through XII unremarkable. Cerebellum unremarkable. Motor and sensory unremarkable throughout. Exam nonfocal. Diagnostics: Her lab to Fridays lab of CBC CMP chest x-ray and head CT within the last week all normal at that time, and 10 you to be normal and did add a TSH he is hypothyroid which may contribute to the symptoms [CBC CMP UA troponin EKG Chest 1 view ] Therapeutics: []Recommend Synthroid Impression: [] bradycardia resolved Both thyroidism Definitive disposition and diagnosis as appropriate pending reevaluation and review of above. Bilateral Lower Abdomen Pain Score (Numeric/FACES): 4 - Related Data Allergies Allergy/AdvReac Type Severity Reaction Status Date / Time No Known Allergies Allergy Verified 03/29/19 16:57 Home Meds: Home Meds Aspirin [Althea Chewable Aspirin] 81 mg PO DAILY 04/24/14 [History] Calcium Citrate/Vitamin D3 [Citracal-Vit D 200 mg-250 Tab] 1 each PO DAILY 04/24 [History] Carbidopa/Levodopa [Carbidopa-Levodopa 25-100] 1.5 tab PO QID 04/24/14 [History] Alum Hydrox/Mag Hydrox/Simeth [Mag-Al Plus] 30 ml PO DAILY PRN 12/04/17 [History ] Bisacodyl [Dulcolax] 10 mg RECTAL Q24H PRN 12/04/17 [History] Carbamide Peroxide [Debrox] 3 drop EARBOTH BEDTIME PRN 12/04/17 [History] Carbidopa/Levodopa [Carbidopa-Levo ER 50-200] 1 tab PO BEDTIME 12/04/17 [History ] Docusate Sodium 100 mg PO BID 12/04/17 [History] Entacapone 200 mg PO 5XDAY 12/04/17 [History] Loperamide HCl [Imodium A-D] 2 - 4 mg PO TID PRN MDD 3 12/04/17 [History] Magnesium Hydroxide [Milk of Magnesia] 30 ml PO DAILY PRN 12/04/17 [History] Multivit-Min/FA/Lycopene/Lut [Certavite Sr with Lutein Tab] 1 each PO DAILY 11/20 [History] Oxybutynin 5 mg PO BID 12/04/17 [History] Polyethylene Glycol 3350 [MiraLAX] 17 gm PO BID PRN 12/04/17 [History] Ranitidine HCl [Ranitidine] 150 mg PO BID PRN 12/04/17 [History] ARIPiprazole [Abilify] 10 mg PO DAILY 03/19/19 [History] Allopurinol [Zyloprim] 100 mg PO DAILY 03/19/19 [History] Citalopram Hydrobromide [Celexa] 10 mg PO DAILY 03/19/19 [History] Na Phos,M-B/Na Phos,Di-Ba [Fleet Enema] 1 applic RC ASDIRECTED PRN 03/19/19 [ History] guaiFENesin [Mucinex] 600 mg PO Q12H PRN 03/19/19 [History] Acetaminophen [Tylenol] 650 mg PO Q6H PRN 03/29/19 [History] Dextromethorphan/guaiFENesin [Robitussin DM] 10 ml PO Q4H PRN 03/29/19 [History] Past Medical History - Past Health History Medical/Surgical History: Denies Medical/Surgical History HEENT History: Reports: Hard of Hearing, Impaired Vision Cardiovascular History: Reports: Afib, Hypertension Respiratory History: Reports: None Gastrointestinal History: Reports: Other (See Below) Other Gastrointestinal History: Constipation Genitourinary History: Reports: Other (See Below) Other Genitourinary History: Urinary Urgency Musculoskeletal History: Reports: Gout, Other (See Below) Other Musculoskeletal History: muscle weakness. lack of coordination Neurological History: Reports: Parkinson's Psychiatric History: Reports: Depression Endocrine/Metabolic History: Reports: None Hematologic History: Reports: Other (See Below) Other Hematologic History: Thrombocytopenia Immunologic History: Reports: None Oncologic (Cancer) History: Reports: None Dermatologic History: Reports: None - Infectious Disease History Infectious Disease History: Reports: Chicken Pox, Measles, Mumps Social & Family History - Family History Family Medical History: Noncontributory - Caffeine Use Caffeine Use: Reports: None ED ROS GENERAL - Review of Systems Review Of Systems: See Below ED EXAM, GENERAL - Physical Exam Exam: See Below Course - Vital Signs Last Recorded V/S: Last Vital Signs Temp 97.5 F 03/29/19 16:45 Pulse 84 03/29/19 17:55 Resp 20 03/29/19 17:55 BP 116/68 03/29/19 17:55 Pulse Ox 98 03/29/19 17:55 - Orders/Labs/Meds Orders: Active Orders 24 hr Category Date Time Status EKG Documentation Completion [RC] STAT Care 03/29/19 16:50 Active UA RFX ANA MARIA AND CULT IF INDIC [URIN] Stat Lab 03/29/19 16:50 Ordered Labs: Laboratory Tests 03/29/19 03/29/19 03/29/19 Range/Units 17:10 17:10 17:10 WBC 7.70 (4.0-11.0) K/uL RBC 5.33 (4.50-5.90) M/uL Hgb 16.4 (13.0-17.0) g/dL Hct 48.6 (38.0-50.0) % MCV 91.2 (80.0-98.0) fL MCH 30.8 (27.0-32.0) pg MCHC 33.7 (31.0-37.0) g/dL RDW Std Deviation 48.9 (28.0-62.0) fl RDW Coeff of [place] 15 (11.0-15.0) % Plt Count 198 (150-400) K/uL MPV 12.20 H (7.40-12.00) fL Neut % (Auto) 72.0 (48.0-80.0) % Lymph % (Auto) 15.2 L (16.0-40.0) % [place] % (Auto) 8.3 (0.0-15.0) % Eos % (Auto) 3.9 (0.0-7.0) % Baso % (Auto) 0.6 (0.0-1.5) % Neut # (Auto) 5.5 (1.4-5.7) K/uL Lymph # (Auto) 1.2 (0.6-2.4) K/uL [place] # (Auto) 0.6 (0.0-0.8) K/uL Eos # (Auto) 0.3 (0.0-0.7) K/uL Baso # (Auto) 0.1 (0.0-0.1) K/uL Nucleated RBC % 0.0 /100WBC Nucleated RBCs # 0 K/uL Sodium 141 (136-148) mmol/L Potassium 4.9 (3.5-5.1) mmol/L Chloride 106 (98-107) mmol/L Carbon Dioxide 27.7 (21.0-32.0) mmol/L BUN 18 (7.0-18.0) mg/dL Creatinine 0.9 (0.8-1.3) mg/dL Est Cr Clr Drug Dosing 60.06 mL/min Estimated GFR (MDRD) > 60.0 ml/min Glucose 92 (74-106) mg/dL Calcium 9.0 (8.5-10.1) mg/dL Total Bilirubin 0.6 (0.2-1.0) mg/dL AST 22 (15-37) IU/L ALT 12 L (14-63) IU/L Alkaline Phosphatase 79 (46-116) U/L Troponin I < 0.050 (0.000-0.056) ng/mL Total Protein 6.6 (6.4-8.2) g/dL Albumin 3.4 (3.4-5.0) g/dL Globulin 3.2 (2.6-4.0) g/dL Albumin/Globulin Ratio 1.1 (0.9-1.6) TSH 3rd Generation 4.20 H (0.36-3.74) uIU/mL Departure - Departure Time of Disposition: 18:36 Disposition: Home, Self-Care 01 Condition: Good Clinical Impression: Hypothyroid - Discharge Information Referrals: Андрей Lundy MD [Primary Care Provider] - Additional Instructions: Recommend thyroid replacement therapy The following information is given to patients seen in the emergency department who are being discharged to home. This information is to outline your options for follow-up care. We provide all patients seen in our emergency department with a follow-up referral. The need for follow-up, as well as the timing and circumstances, are variable depending upon the specifics of your emergency department visit. If you don't have a primary care physician on staff, we will provide you with a referral. We always advise you to contact your personal physician following an emergency department visit to inform them of the circumstance of the visit and for follow-up with them and/or the need for any referrals to a consulting specialist. The emergency department will also refer you to a specialist when appropriate. This referral assures that you have the opportunity for follow-up care with a specialist. All of these measure are taken in an effort to provide you with optimal care, which includes your follow-up. Under all circumstances we always encourage you to contact your private physician who remains a resource for coordinating your care. When calling for follow-up care, please make the office aware that this follow-up is from your recent emergency room visit. If for any reason you are refused follow-up, please contact the [facility] emergency department at and asked to speak to the emergency department charge nurse. - My Orders Last 24 Hours: My Active Orders 03/29/19 16:50 EKG Documentation Completion [RC] STAT UA RFX ANA MARIA AND CULT IF INDIC [URIN] Stat - Assessment/Plan Last 24 Hours: My Active Orders 03/29/19 16:50 EKG Documentation Completion [RC] STAT UA RFX ANA MARIA AND CULT IF INDIC [URIN] Stat
[2019-03-29 17:50] LABS: CHLORIDE,CL 106 mmol/L (98-107); SODIUM,NA 141 mmol/L (136-148)
--- NOTE | 2019-03-29 17:55 | CR ---
HISTORY: Weakness and bradycardia. FINDINGS: Single AP view of the chest is provided. Comparison is made to previous study dated 03/19/2019. Again noted are mildly diminished lung volumes. The lungs are clear and there is no evidence for pleural effusion or pneumothorax. Cardiac silhouette size is within normal limits. IMPRESSION: Clear lungs. Dictated by Lobito Wooten MD @ Mar 29 2019 5:52PM Signed by Dr. Lobito Wooten @ Mar 29 2019 5:53PM
[2019-03-29 18:51] VITALS: BP 112/74
== END 2019-03-29 19:01 | disposition home or self-care (01) ==
LOC: MW.ED 16:33
DX: E03.9 Hypothyroidism, unspecified (principal); I48.91 Unspecified atrial fibrillation; I10 Essential (primary) hypertension; R00.1 Bradycardia, unspecified; Z79.82 Long term (current) use of aspirin; Z79.899 Other long term (current) drug therapy
CPT/HCPCS: 36415; 71045; 71045-26; 80053; 81003; 84443; 84484; 85025; 93005; 99285-25